=== PATIENT | female | born 1965 | race Caucasian/White ===

== ENCOUNTER 2017-02-19 16:47 | Emergency (ER) | payer OTHER ==
[~2017-02-19] VITALS: Ht 170.2 cm; Wt 81.8 kg
[~2017-02-19 16:47] MED LIST: HYD25 PO; NAPR375T5 PO; OMEP40CA6 PO; SMV40T PO; TRAM100T2 PO
[2017-02-19 17:10] VITALS: Ht 170.2 cm; Wt 81.8 kg
[2017-02-19] MEDS ORDERED: HYDROCODONE/APAP (5/325) TAB PO ONE (19:00)
[2017-02-19] MEDS ORDERED: HYDR-906 PO (19:14)
--- NOTE | 2017-02-19 19:14 | ERD ---
ER Documentation Chief Complaint Date/Time DATE: 02/19/17 TIME: 19:05 Chief Complaint right knee pain/injury HPI 52-year-old female presents in emergency department for complaint of right knee pain for 3 years now, patient has chronic problems with her right knee, is going be evaluated by primary care doctor, orthopedic doctor for this, has been through a lot of physical therapy, patient was told to come here in emergency department if pain is severe. Patient took tramadol home with only mild relief. Patient denies any reinjury. Patient had a history right knee surgery, had surgery 3 years ago, ever since, patient has been having problems with her knee. Patient described the pain as throbbing pain, 8/10 scale, is worse upon movement. Patient denies any numbness or tingling. Patient denies any deformity. ROS All systems reviewed and are negative except as per history of present illness. Medications Home Meds Reported Medications Simvastatin (Simvastatin) 40 Mg Tablet, 40 MG PO HS 01/07/14 Tramadol Hcl* (Tramadol* ER) 100 Mg Tab.er.24h, 50 MG PO BID 01/07/14 Naproxen* (Naproxen EC*) 375 Mg Tablet.dr, 375 MG PO BID 01/07/14 Hydrochlorothiazide* (Hydrochlorothiazide*) 25 Mg Tab, 25 MG PO AM, TAB 01/07/14 Omeprazole* (Omeprazole*) 40 Mg Capsule.dr, 40 MG PO DAILY 01/07/14 Allergies Allergies: Coded Allergies: No Known Allergy (Unverified , 05/01/15) PMhx/Soc Medical and Surgical Hx: pt denies Medical Hx History of Surgery: Yes (right knee surgery) Anesthesia Reaction: No Hx Neurological Disorder: No Hx Respiratory Disorders: No Hx Cardiac Disorders: No Hx Psychiatric Problems: No Hx Alcohol Use: No Hx Substance Use: No Hx Tobacco Use: No Smoking Status: Never smoker FmHx Family History: No coronary disease, No diabetes, No other Physical Exam Vitals Vital Signs Date Time Temp Pulse Resp B/P Pulse Ox O2 Delivery O2 Flow Rate FiO2 02/19/17 17:10 98.3 76 19 113/69 99 Physical Exam GENERAL: The patient is well developed and appropriate for usual state of health, in no apparent distress. CHEST: Clear to auscultation bilaterally. There are no rales, wheezes or rhonchi. HEART: Regular rate and rhythm. No murmurs, clicks, rubs or gallops. No S3 or S4. ABDOMEN: Soft, nontender and nondistended. Good bowel sounds. No rebound or guarding. No gross peritonitis. No gross organomegaly or masses. No Sutherland sign or McBurney point tenderness. BACK: No midline or flank tenderness. EXTREMITIES: Noted mild swelling on the medial aspect of the right knee, able to do full range of motion without any injection, able to ambulate on it, no crepitus, no redness, mild tenderness on palpation on medial aspect of the knee. Equal pulses bilaterally. Full range of motion of other joints of the body. Grossly neurovascularly intact. NEURO: Alert and oriented. Cranial nerves 2-12 intact. Motor strength in all 4 extremities with 5/5 strength. Sensation grossly intact. Normal speech and gait. SKIN: There is no apparent rash or petechia. The skin is warm and dry. HEMATOLOGIC AND LYMPHATIC: There is no evidence of excessive bruising or lymphedema. No gross cervical, axillary, or inguinal lymphadenopathy. Results 24 hrs Current Medications Medications (Trade) Dose Ordered Sig/Nanmarie Route PRN Reason Start Time Stop Time Status Last Admin Dose Admin Acetaminophen/ Hydrocodone Bitart ([place] (5/325)) 1 tab ONCE ONCE PO 02/19/17 19:00 02/19/17 19:01 DC Patient was given medication for pain here in emergency department, after treatment, patient verbalized feeling much better. Patient's pain is improved. After receiving patients xray report, a knee immobilizer was applied on the patients right knee. After application of the splint, patient has intact sensation and circulation on distal area of the affected joint. Patient does not complain of numbness or tingling after application of the splint. Patient tolerated procedure well. Procedures/MDM Medical Decision Making: Patient's pain is most likely consistent with a right knee sprain, chronic pain. There is no suspicion for neurovascular compromise. Patient has intact sensation and circulation of the affected extremity. There is low suspicion for septic arthritis. Patient does not have any fever. Radiology exams was then multiple times by primary care doctor and specialist, no reinjury, repeat radiology exam is not indicated at this time. Disposition: Home. Patient is given prescription for [place] severe pain, continue ibuprofen for mild to moderate pain. Patient was advised to elevate the affected area and apply ice on affected area. Patient was advised that if symptoms are worse, numbness, tingling, high fever, unable to move joint, worsening symptoms, to return to emergency department immediately. Otherwise, patient is advised to follow up with the primary care doctor in 5-7 days for reevaluation of symptoms. Departure Diagnosis: Primary Impression: Knee pain Laterality: right Chronicity: acute Qualified Code: M25.561 - Acute pain of right knee Condition: Stable Patient Instructions: Knee Pain, Uncertain Cause Additional Instructions: Patient is given prescription for [place] severe pain, continue ibuprofen for mild to moderate pain. Patient was advised to elevate the affected area and apply ice on affected area. Patient was advised that if symptoms are worse, numbness, tingling, high fever, unable to move joint, worsening symptoms, to return to emergency department immediately. Otherwise, patient is advised to follow up with the primary care doctor in 5-7 days for reevaluation of symptoms. KALYN FARIA NP Feb 19, 2017 19:13
[2017-02-19 19:33] VITALS: BP 113/69; PULSE 78; RESP 19; TEMP 98.3
== END 2017-02-19 19:33 | disposition home or self-care (01) ==
LOC: FTE 16:47
DX: M25.561 Pain in right knee (principal)
CPT/HCPCS: 29505; Z7502; Z7610

== ENCOUNTER 2018-09-25 18:06 | Emergency (ER) | END 2018-09-25 20:53 | disposition home or self-care (01) ==